=== PATIENT | female | born 1965 | race American Indian/Alaskan Native ===

== ENCOUNTER 2018-03-22 13:10 | Emergency (ER) | payer OTHER ==
[~2018-03-22] VITALS: Ht 177.8 cm; Wt 81.7 kg
--- OUTSIDE RECORDS SUMMARY | ~2018-03-22 | XMS | Clinical Summary ---
Demographics + + + | Address | [address] | | | [place] [address] | + + + | Home Phone | | + + + | Preferred Language | Unknown | + + + | Marital Status | Single | + + + | Rastafari Affiliation | UNK | + + + | Race | White | + + + | Ethnic Group | Unknown | + + + Author + + + | Organization | Unknown | + + + | Address | Unknown | + + + | Phone | Unavailable | + + + Care Team Providers + +------+ + | Care Roll Carrier Name | Role | Phone | + +------+ + PP | Unavailable | + +------+ + Source Comments CURTIS is fully live on both [facility] Ambulatory and [facility] InPatient.[facility] Allergies Not on File Current Medications Not [...] | + + + + + | INFLUENZA VACCINE | | | | | (FLU SHOT) | 8 | | | + + + + + Results Not on filefrom Last 3 Months"
--- OUTSIDE RECORDS SUMMARY | ~2018-03-22 | XMS | Clinical Summary ---
Demographics + + + | Address | [address] | | | [place] [address] | + + + | Home Phone | | + + + | Preferred Language | Unknown | + + + | Marital Status | Single | + + + | Jew Affiliation | UNK | + + + | Race | White | + + + | Ethnic Group | Unknown | + + + Author + + + | Organization | Unknown | + + + | Address | Unknown | + + + | Phone | Unavailable | + + + Care Team Providers + +------+ + | Care Concrete Precast [place] Name | Role | Phone | + +------+ + PP | Unavailable | + +------+ + Source Comments CURTIS is fully live on both [facility] Ambulatory and [facility] InPatient.[facility] & [facility] Allergies Not on File Current Medications [...]
== END 2018-03-22 13:25 | disposition short-term general hospital (02) ==
LOC: ED 13:10
DX: S60.552A Superficial foreign body of left hand, initial encounter (principal); X58.XXXA Exposure to other specified factors, initial encounter

== ENCOUNTER 2018-06-04 15:32 | Emergency (ER) | payer OTHER ==
[~2018-06-04] VITALS: Ht 177.8 cm; Wt 81.7 kg
--- OUTSIDE RECORDS SUMMARY | ~2018-06-04 | XMS | Clinical Summary ---
Demographics + + + | Address | [address] | | | [place] [address] | + + + | Home Phone | | + + + | Preferred Language | Unknown | + + + | Marital Status | Single | + + + | Adventist Affiliation | UNK | + + + | Race | White | + + + | Ethnic Group | Unknown | + + + Author + + + | Organization | Unknown | + + + | Address | Unknown | + + + | Phone | Unavailable | + + + Care Team Providers + +------+ + | Care Infrastructure Administrator Name | Role | Phone | + +------+ + PP | Unavailable | + +------+ + Source Comments CURTIS is fully live on both [facility] Ambulatory and [facility] InPatient.[facility] & [facility] Allergies Not on File Current Medications Not on file Active Problems Not on file Social History + +-------+ +--------+------+ | Tobacco Use | Types | Packs/Day | Years | Date | | | | | Used | | + +-------+ +--------+------+ | Never Assessed | | | | | + +-------+ +--------+------+ + + + | Sex Assigned at | Date Recorded | | | | + + + | Not on file | | + + + Plan of Treatment + + + + + | Health Maintenance | Due Date | Last Done | Comments | + + + + + | Influenza (Flu) | | | | | vaccination (#1) | 8 | | | + + + + + Results Not on filefrom Last 3 Months"
--- OUTSIDE RECORDS SUMMARY | ~2018-06-04 | XMS | Clinical Summary ---
Demographics + + + | Address | [address] | | | [place] [address] | + + + | Home Phone | | + + + | Preferred Language | Unknown | + + + | Marital Status | Single | + + + | Nondenominational Affiliation | UNK | + + + | Race | White | + + + | Ethnic Group | Unknown | + + + Author + + + | Organization | Unknown | + + + | Address | Unknown | + + + | Phone | Unavailable | + + + Care Team Providers + +------+ + | Care Environmental Engineer Scientist Name | Role | Phone | + +------+ + PP | Unavailable | + +------+ + Source Comments CURTIS is fully live on both [facility] Ambulatory and [facility] InPatient.[facility] & [facility] Allergies Not on File Current Medications [...]
== END 2018-06-04 17:32 | disposition home or self-care (01) ==
LOC: ED 15:32
DX: S61.212A Laceration without foreign body of right middle finger without damage to nail, initial encounter (principal); W22.8XXA Striking against or struck by other objects, initial encounter; Y99.0 Civilian activity done for income or pay; Z87.891 Personal history of nicotine dependence
CPT/HCPCS: 12002; 73140; 99283

== ENCOUNTER 2019-04-06 17:04 | Emergency (ER) | payer OTHER ==
[~2019-04-06] VITALS: Ht 177.8 cm; Wt 81.7 kg
[2019-04-06] MEDS ORDERED: CYCLOBENZAPRINE10 MG PO (18:08)
== END 2019-04-06 18:23 | disposition home or self-care (01) ==
LOC: ED 17:04
DX: S39.012A Strain of muscle, fascia and tendon of lower back, initial encounter (principal); F17.200 Nicotine dependence, unspecified, uncomplicated; V80.010A Animal-rider injured by fall from or being thrown from horse in noncollision accident, initial encounter
CPT/HCPCS: 72100; 99283

== ENCOUNTER 2019-12-31 14:49 | Emergency (ER) | payer OTHER ==
[~2019-12-31] VITALS: Ht 177.8 cm; Wt 81.6 kg
--- OUTSIDE RECORDS SUMMARY | ~2019-12-31 | XMS | Clinical Summary ---
Demographics + + + | Address | [address] | | | [place] [address] | + + + | Home Phone | | + + + | Preferred Language | Unknown | + + + | Marital Status | Single | + + + | Sabianism Affiliation | UNK | + + + | Race | White | + + + | Ethnic Group | Unknown | + + + Author + + + | Organization | Unknown | + + + | Address | Unknown | + + + | Phone | Unavailable | + + + Care Team Providers + +------+ + | Care Tapeman Name | Role | Phone | + +------+ + PCP | Unavailable | + +------+ + Source Comments CURTIS is fully live on both [facility] Ambulatory and [facility] InPatient.[facility] Allergies Not on File Medications Not on file Active Problems Not [...] on file | | + + + + + + + | Job Start Date | Occupation | Industry | + + + + | Not on file | Not on file | Not on file | + + + + + + + + | Travel History | Travel Start | Travel End | + + + + + + | No recent travel history available. | + + Last Filed Vital Signs Not on file Plan of Treatment + + + + + | Health Maintenance | Due Date | Last Done | Comments | + + + + + | Influenza (Flu) | | | | | vaccination (#1) | 9 | | | + + + + + | Pneumococcal | Aged Out | | No longer eligible | | vaccination | | | based on patient's | | | | | age to complete this | | | | | topic | + + + + + Results Not on filefrom Last 3 Months"
--- OUTSIDE RECORDS SUMMARY | ~2019-12-31 | XMS | Encounter Summary ---
Demographics + + + | Address | [address] | | | [place] [address] | + + + | Home Phone | | + + + | Preferred Language | Unknown | + + + | Marital Status | Single | + + + | Scientologist Affiliation | UNK | + + + | Race | White | + + + | Ethnic Group | Unknown | + + + Author + + + | Author | [facility] | + + + | Organization | [facility] | + + + | Address | Unknown | + + + | Phone | Unavailable | + + + Care Team Providers + +------+ + | Care Inspector Publications Name | Role | Phone | + +------+ + PCP | Unavailable | + +------+ + Encounter Details +--------+ + + + + | Date | Type | Department | Care Team | Description | +--------+ + + + + | 07/29/ | Results | [facility] | Duncan Marks, | | | 2008 | Only | Department | MD [address] | | | | | [place] | | | | | | [address] | | | | | | [phone] | | | | | | | | +--------+ + + + + Social History + +-------+ +--------+------+ | Tobacco [...] recent travel history available. | + + documented as of this encounter Plan of Treatment Not on filedocumented as of this encounter Procedures + +--------+ + + + | Procedure Name | Priori | Date/Time | Associated Diagnosis | Comments | | | ty | | | | + +--------+ + + + | CERVICAL WITHOUT | Routin | 07/29/2009 | | Results for this | | [id number] | e | 6:24 AM | | procedure are in the | | | | PST | | results section. | + +--------+ + + + | C- SPINE 3 VIEW OR | Routin | 07/29/2009 | | Results for this | | LESS [id number] | e | 5:07 AM | | procedure are in the | | | | PST | | results section. | + +--------+ + + + documented in this encounter Results CERVICAL WITHOUT [id number] (07/29/2009 6:24 AM PST) + + | Specimen | + + | | + + + + + | Narrative | Performed At | + + + | CT SCAN OF THE CERVICAL SPINE INDICATION: Trauma, neck pain. | [facility] | | COMPARISON: No prior for comparison. TECHNIQUE: Contiguous axial | DEPARTMENT OF | | images were obtained through the cervical spine. Coronal and | RADIOLOGY | | sagittal reformatted images were performed and reviewed. FINDINGS: | | | Dr. Gonzalez of [facility] provided a preliminary report. | | | There is reversal of the normal lordotic curvature centered at C4-5 in | | | the sagittal projection. Alignment of the cervical vertebral | | | bodies is otherwise normal. No fracture is identified. No | | | prevertebral soft tissue swelling. There are multiple levels of | | | degenerative disk disease with disk space narrowing at C3-4, C4-5, | | | C5-6, and C6-7. Anterior osteophyte formation at the C3-4, C4-5, and | | | C5-6 levels. There is anterior spurring at C6-7. Mild posterior | | | osteophyte formation at the C5-6 and C6-7 levels. There is mild to | | | moderate neural foraminal narrowing to the left at C5-6 secondary to | | | facet and uncovertebral hypertrophy. There are additional mild | | | areas of neural foraminal narrowing within the cervical spine | | | secondary to facet and uncovertebral hypertrophy. IMPRESSION: No | | | CT evidence for fracture of the cervical spine. Nonspecific reversal | | | of the normal lordotic curvature. This may be secondary to | | | positioning or spasm. Multilevel degenerative change within the | | | cervical spine. [id number] | | + + + + + | Procedure Note | + + | Interface, Radiology Results - 03/20/2015 11:[address] SCAN OF THE CERVICAL SPINE | | INDICATION: Trauma, neck pain. | | COMPARISON: No prior for comparison. | | TECHNIQUE: Contiguous axial images were obtained through the cervical | | spine. Coronal and sagittal reformatted images were performed and | | reviewed. | | FINDINGS: Dr. Gonzalez of [facility] provided a preliminary | | report. | | There is reversal of the normal lordotic curvature centered at C4-5 in | | the sagittal projection. Alignment of the cervical vertebral bodies | | is otherwise normal. No fracture is identified. No prevertebral soft | | tissue swelling. There are multiple levels of degenerative disk | | disease with disk space narrowing at C3-4, C4-5, C5-6, and C6-7. | | Anterior osteophyte formation at the C3-4, C4-5, and C5-6 levels. | | There is anterior spurring at C6-7. Mild posterior osteophyte | | formation at the C5-6 and C6-7 levels. There is mild to moderate | | neural foraminal narrowing to the left at C5-6 secondary to facet and | | uncovertebral hypertrophy. There are additional mild areas of neural | | foraminal narrowing within the cervical spine secondary to facet and | | uncovertebral hypertrophy. | | IMPRESSION: No CT evidence for fracture of the cervical spine. | | Nonspecific reversal of the normal lordotic curvature. This may be | | secondary to positioning or spasm. Multilevel degenerative change | | within the cervical spine. | | [id number] | + + + +---------+ + + | Performing | Address | City/State/Zipcode | Phone Number | | Organization | | | | + +---------+ + + | [facility] DEPARTMENT OF | | | | | RADIOLOGY | | | | + +---------+ + + C- SPINE 3 VIEW OR LESS [id number] (07/29/2009 5:07 AM PST) + + | Specimen | + + | | + + + + + | Narrative | Performed At | + + + | EXAM: CERVICAL SPINE SERIES CLINICAL HISTORY: Trauma COMPARISON: | [facility] | | None available TECHNIQUE: AP, lateral and open mouth odontoid views | DEPARTMENT OF | | of the cervical spine were obtained. FINDINGS: Straightening of the | RADIOLOGY | | normal cervical lordosis is identified with mild loss of height of | | | the C5 and C6 vertebral bodies. There is no acute fracture | | | identified. Extensive anterior degenerative spurring is identified | | | at C4-C5, C5-C6 and C6-C7 with small posterior degenerative spurs at | | | C5-C6 and C6-C7. There is minimal subluxation at C5-C6 and C6-C7. | | | However, overall the alignment is grossly intact. The | | | prevertebral soft tissues are not thickened and the odontoid process | | | is intact. There is uncinate hypertrophy visualized within the | | | lower cervical spine. The lung apices are clear. IMPRESSION: | | | Multilevel moderate degenerative changes within the mid cervical | | | spine. No acute fracture. | | + + + + + | Procedure Note | + + | Interface, Radiology Results - 03/20/2015 11:58 AM PDT EXAM: CERVICAL SPINE SERIES | | CLINICAL HISTORY: Trauma | | COMPARISON: None available | | TECHNIQUE: AP, lateral and open mouth odontoid views of the cervical | | spine were obtained. | | FINDINGS: Straightening of the normal cervical lordosis is identified | | with mild loss of height of the C5 and C6 vertebral bodies. There is | | no acute fracture identified. Extensive anterior degenerative | | spurring is identified at C4-C5, C5-C6 and C6-C7 with small posterior | | degenerative spurs at C5-C6 and C6-C7. There is minimal subluxation | | at C5-C6 and C6-C7. However, overall the alignment is grossly | | intact. The prevertebral soft tissues are not thickened and the | | odontoid process is intact. There is uncinate hypertrophy visualized | | within the lower cervical spine. The lung apices are clear. | | IMPRESSION: Multilevel moderate degenerative changes within the | | mid cervical spine. No acute fracture. | + + + +---------+ + + | Performing | Address | City/State/Zipcode | Phone Number | | Organization | | | | + +---------+ + + | [facility] DEPARTMENT OF | | | | | RADIOLOGY | | | | + +---------+ + + documented in this encounter Visit Diagnoses Not on filedocumented in this encounter"
--- OUTSIDE RECORDS SUMMARY | ~2019-12-31 | XMS | Clinical Summary ---
Demographics + + + | Address | [address] | | | [place] [address] | + + + | Home Phone | | + + + | Preferred Language | Unknown | + + + | Marital Status | Single | + + + | Voodoo Affiliation | UNK | + + + | Race | White | + + + | Ethnic Group | Unknown | + + + Author + + + | Organization | Unknown | + + + | Address | Unknown | + + + | Phone | Unavailable | + + + Care Team Providers + +------+ + | Care Outdoor Landscape Architect Name | Role | Phone | + +------+ + PCP | Unavailable | + +------+ + Source Comments CURTIS is fully live on both [facility] Ambulatory and [facility] InPatient.[facility] & [facility] Allergies Not on File Medications Not on [...]
--- OUTSIDE RECORDS SUMMARY | ~2019-12-31 | XMS | Encounter Summary ---
Demographics + + + | Address | [address] | | | [place] [address] | + + + | Home Phone | | + + + | Preferred Language | Unknown | + + + | Marital Status | Single | + + + | Christian Affiliation | UNK | + + + | Race | White | + + + | Ethnic Group | Unknown | + + + Author + + + | Author | [facility] | + + + | Organization | [facility] | + + + | Address | Unknown | + + + | Phone | Unavailable | + + + Care Team Providers + +------+ + | Care Digital Marketing Consultant Name | Role | Phone | + [...] [place] | | | | | | [address] | | | | | | [phone] | | | | | | | [...] | | Results for this | | [id number] | e | 6:24 AM | | procedure are in the | | | | PST | | results section. | + +--------+ + + + | C- SPINE 3 VIEW OR | Routin | 07/29/2009 | | Results for this | | LESS [id number] | e | 5:07 AM | | procedure are in the | | | | PST | | results section. | + +--------+ + + + documented in this encounter Results CERVICAL WITHOUT [id number] (07/29/2009 6:24 AM PST) + + | [...] FINDINGS: | | | Dr. Gonzalez of [facility] provided a preliminary report. | | [...] within the | | | cervical spine. [id number] | | + + + + + [...] reviewed. | | FINDINGS: Dr. Gonzalez of [facility] provided a preliminary | | report. [...] | within the cervical spine. | | [id number] | + + + +---------+ + + | Performing | Address | City/State/Zipcode | Phone Number | | Organization | | | | + +---------+ + + | [facility] DEPARTMENT OF | | | | | RADIOLOGY | | | | + +---------+ + + C- SPINE 3 VIEW OR LESS [id number] (07/29/2009 5:07 AM PST) + + | [...]
[~2019-12-31 14:49] MED LIST: CYCLOBENZAPRINE10 MG PO
== END 2019-12-31 16:08 | disposition home or self-care (01) ==
LOC: ED 14:49
DX: K52.9 Noninfective gastroenteritis and colitis, unspecified (principal); L30.9 Dermatitis, unspecified; M79.10 Myalgia, unspecified site; F17.200 Nicotine dependence, unspecified, uncomplicated
CPT/HCPCS: 87493; 99284; A9270; U0002

== ENCOUNTER 2020-01-12 12:12 | Emergency (ER) | payer OTHER ==
[~2020-01-12] VITALS: Ht 177.8 cm; Wt 97.5 kg
--- OUTSIDE RECORDS SUMMARY | 2020-01-12 12:14 | XMS ---
PreManage Notification: AMADOU URBINA Security Sharepoint Application Developer Events No recent Security Events currently on file CRITERIA MET - [facility] - 2 Visits in 30 Days CARE PROVIDERS There are no care providers on record at this time. Chavo has no Care Guidelines for this patient. Joe VISIT COUNT ([address] [facility] TOTAL 3 NOTE: Visits indicate total known visits. ED/C VISIT TRACKING (12 MO.) [facility]2020 [facility] [place] [facility] COMPLAINT: - BUCKED OFF HORSE, LEFT SIDE HURTS 12/31/2019 14:50 [facility] [place] TYPE: Emergency COMPLAINT: - HEAD PAIN, DIARRHEA DIAGNOSES: - Dermatitis, unspecified - Noninfective gastroenteritis and colitis, unspecified - Myalgia, unspecified site - Nicotine dependence, unspecified, uncomplicated - Diarrhea, unspecified 04/06/2019 17:05 [facility] [place] TYPE: Emergency COMPLAINT: - BACK PAIN, INJ DIAGNOSES: - Animal-rider injured by fall from or being thrown from horse - Strain of muscle, fascia and tendon of lower back, initial en - Low back pain - Nicotine dependence, unspecified, uncomplicated INPATIENT VISIT TRACKING (12 MO.) No inpatient visits to display in this time frame [email or web address]
[2020-01-12] MEDS ORDERED: NORCO 5-325 TA1 EACH PO (14:14)
== END 2020-01-12 14:35 | disposition home or self-care (01) ==
LOC: ED 12:12
DX: R07.89 Other chest pain (principal); G43.909 Migraine, unspecified, not intractable, without status migrainosus; F17.200 Nicotine dependence, unspecified, uncomplicated; V80.010A Animal-rider injured by fall from or being thrown from horse in noncollision accident, initial encounter
CPT/HCPCS: 71046; 99283-25

== ENCOUNTER 2021-03-01 20:33 | Emergency (ER) | payer OTHER ==
[~2021-03-01] VITALS: Ht 177.8 cm; Wt 97.5 kg
[~2021-03-01 20:33] MED LIST changes: +NORCO 5-325 TA1 EACH PO
[2021-03-02] MEDS ORDERED: COL-RITE250 MG PO (00:19)
[2021-03-02] MEDS ORDERED: HYDROCODON-ACE1 EA10 PO (00:19)
== END 2021-03-02 01:45 | disposition home or self-care (01) ==
LOC: ED 20:33
DX: S42.292A Other displaced fracture of upper end of left humerus, initial encounter for closed fracture (principal); W01.0XXA Fall on same level from slipping, tripping and stumbling without subsequent striking against object, initial encounter; G43.909 Migraine, unspecified, not intractable, without status migrainosus; F17.200 Nicotine dependence, unspecified, uncomplicated
CPT/HCPCS: 73030; 73080; 96374; 96375; 99283-25; J1170; J2270; J2405

== ENCOUNTER 2021-03-15 10:50 | Day surgery (SDC) | payer OTHER ==
[~2021-03-15] VITALS: Ht 177.8 cm; Wt 97.5 kg
[~2021-03-15 10:50] MED LIST changes: +COL-RITE250 MG PO; +HYDROCODON-ACE1 EA10 PO
[2021-03-15] MEDS ORDERED: IBUPROFEN200 M1 PO (11:35)
--- NOTE | 2021-03-15 11:53 | NUR ---
RAPID COVID TEST DONE PER DR ORDER. COVID TEST COLLECTED FROM BOTH NARES. LEFT SIDE HAD OBSTRUCTION. RIGHT SIDE GOOD. PT TOLERATED WELL.
[2021-03-15] MEDS ORDERED: HYDROCODON-ACE1 EA11 PO (15:11)
--- NOTE | 2021-03-15 15:39 | NUR ---
03/15/21 1539 Destiny,Carolee 1508 PT ARRIVED TO PACU ON 6L VIA MASK, RESP EVEN AND UNLABORED. VSS. 1515 PT WAKES AND IS REORIENTED TO PACU, O2 REMOVED. PT DENIES PAIN AND NAUSEA. HOB INCREASED SLIGHTLY PER REQUEST. PT TEARFUL ABOUT "NOT BEING ABLE TO RIDE HER HORSE." PT ABLE TO MOVE HER FINGERS AND REPORTS NUMBNESS. BLOCK INFORMATION GIVEN.
--- NOTE | 2021-03-15 16:03 | NUR ---
1550: PT ARRIVES TO DS RM 2 FROM PACU AWAKE AND ALERRT. PT DENIES ANY NAUSEA OR PAIN, STATES LEFT ARM "IS PRETTY ." DC CRITERIA EXPLAINED TO PT. PROVIDED ICED WATER AND PUDDING. CALL LIGHT WITHIN REACH.
--- NOTE | 2021-03-15 16:43 | EKG ---
[facility] [address] [facility] [place] [address] Signed Sinus rhythm with 1st degree AV block Otherwise normal ECG No previous ECGs available Confirmed by NAYELY PARISH MD ([id number]) on 03/15/2021 4:43:42 PM Electronically Signed By: NAYELY PARISH MD 03/15/21 1643 PATIENT NAME: AMADOU URBINA Electrocardiogram DATE OF : 61 PHYSICIAN: NAYELY PARISH MD REPORT #: [id number] REPORT IS CONFIDENTIAL AND NOT TO BE RELEASED WITHOUT AUTHORIZATION
--- NOTE | 2021-03-15 17:04 | NUR ---
PT UP TO BATHROOM WITH RN ASSIST, STEADY GAIT. PT ABLE TO VOID 400 MLS YELLOW URINE WITH NO PROBLEMS. PT BACK TO DS RM 2 WITH STEADY GAIT. PT ENCOURAGED TO OPEN CURTAIN WHEN DRESSED, SISTER IN ROOM AT BEDSIDE.
--- NOTE | 2021-03-15 17:30 | NUR ---
1715: PT DRESSED AND PULLS CURTAIN OPEN. DC INSTRUCTIONS PRESENTED VERBALLY AND WRITTEN, PT STATES AN UNDERSTANDING. PT AWARE MEDICATIONS ESCRIPTED TO [facility] AND NOT [facility]. PT DC FROM DS RM 2 VIA WC TO SISTER VEHICLE AT FRONT ENTRANCE OF HOSPITAL TO HOME.
--- NOTE | 2021-03-17 16:21 | OR ---
[facility] [address], [place] [address] Signed DATE OF OPERATION: 03/15/2021 SURGEON: Ilene Duarte MD PREOPERATIVE DIAGNOSIS: Displaced greater tuberosity fracture, left. POSTOPERATIVE DIAGNOSIS: Displaced greater tuberosity fracture, left. PROCEDURE PERFORMED: Open reduction and internal fixation of greater tuberosity. POLE SETTER: Belkis Mcintyre PA-C. Belkis was present and critical for all portions of procedure. ANESTHESIA: General. BLOOD LOSS: 100 mL. IMPLANTS: A 4.0 screw with a washer into FiberTape. BRIEF HISTORY: Amadou is a 55-year-old female, who suffered a ground level fall fracturing her tuberosity. There was no associated surgical neck fracture, but the tuberosity was unstable and displaced. Risks and benefits of operative treatment discussed with her and she elected to proceed. DESCRIPTION OF PROCEDURE: Once consent was obtained, she was taken to the operating room. After adequate anesthesia, she was placed in a beach chair position. All downside pressure points were well padded. The shoulder was then prepped and draped in a standard sterile fashion. Standard deltopectoral approach was taken through skin and subcutaneous tissue. The interval was identified, although we could not identify the cephalic vein. The interval was opened up and the deltoid was mobilized laterally. This allowed visualization of the fracture and this was mobilized superiorly. However, the fragments were fairly Electronically Signed By: ILENE DUARTE MD 03/17/21 1621 PATIENT NAME: AMADOU URBINA OPERATIVE REPORT DATE OF : 61 REPORT #: [id number] PHYSICIAN: ILENE DUARTE MD PCP: [facility] REPORT IS CONFIDENTIAL AND NOT TO BE RELEASED WITHOUT AUTHORIZATION [facility] [address] [place], [place] [address] Signed friable and unable to really get good reduction and hold. We were able to get it back into reasonably good position. While holding the reduction, we were able to put a 4.0 screw in the midportion of the tuberosity. Two FiberTape sutures were placed in tendon grasping fashion through the supraspinatus and infraspinatus and wrapped around the screw and tied. Once this was accomplished, final screw tightening was undertaken. Excellent reduction and neutralization of these rotator cuff forces was obtained. The suture ends were cut. The wound was copiously irrigated with normal saline and closed with 2-0 Stratafix for the deltopectoral interval, 2-0 Stratafix for the subcu tissue, and patrick for the skin. Wound was dressed with Acticoat dressing and she was placed in a pillow splint and taken to the recovery room in satisfactory condition. All sponge, needle, and instrument counts were correct. Ilene Duarte MD BA/NOAL /[id number] Copies: ~ Electronically Signed By: ILENE DUARTE MD 03/17/21 1621 PATIENT NAME: AMADOU URBINA OPERATIVE REPORT DATE OF : 61 REPORT #: [id number] PHYSICIAN: ILENE DUARTE MD PCP: [facility] REPORT IS CONFIDENTIAL AND NOT TO BE RELEASED WITHOUT AUTHORIZATION
== END 2021-03-15 17:20 | disposition home or self-care (01) ==
LOC: DS 10:50
PROVIDERS: ATTEND Specialist
PROC: 0PSD04Z Reposition Left Humeral Head with Internal Fixation Device, Open Approach (ICD-10-PCS; principal; 2021-03-15 14:45)
DX: S42.252A Displaced fracture of greater tuberosity of left humerus, initial encounter for closed fracture (principal); G89.18 Other acute postprocedural pain; F17.200 Nicotine dependence, unspecified, uncomplicated; W01.0XXA Fall on same level from slipping, tripping and stumbling without subsequent striking against object, initial encounter; Y92.524 Gas station as the place of occurrence of the external cause; Z20.822 Contact with and (suspected) exposure to COVID-19
CPT/HCPCS: 01740; 64415; 73030; 76942; 93005; 93010; C1713; C9803; J1100; J2001; J2250; J2405; J2704; J2795; J7121; U0003